=== PATIENT | male | born 1960 | race Caucasian/White ===

== ENCOUNTER 2017-01-24 03:58 | Inpatient (IN) | payer OTHER ==
--- NOTE | ~2017-01-24 | TOC ---
Unit #: [id number] #: [id number] Patient: JOB MERLOS [id number] [facility]. [place], [place] [address] [id number] MR#: [id number] NAME: JOB MERLOS ROOM: 559 Age: 56 Sex: M Admission Date: 01/24/2017 : 1960 Attending Physician: Luis Yuen M.D. Primary Care Physician: No Primary Care Physician TRANSFER OF CARE SUMMARY REASON FOR TRANSFER Three-vessel coronary artery disease, to have CABG early next week. 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 He endorses a history of hypertension and tobacco abuse. The patient presented to the emergency department. He had onset of midsternal chest pain radiating to his bilateral shoulders and bilateral arms, into his back and between his scapula. He did endorse some diaphoresis and shortness of breath with this episode. Ultimately, the patient underwent a cardiac catheterization which showed that his LV was dilated with an EF of 40% to 45%. His left main was normal. LAD showed proximal long segment 90% stenosis, distal normal. Left circumflex 100% after the first OM. Second, third, and posterior OM bypassable. RCA was dominant with 99% to 100% stenosis in its mid segment. PDA, PLV branches filled by retrograde collaterals. Dr. Yuen has discussed this case with Dr. Wang and likely the patient will need a CABG. Currently, patient is stable and awaiting transfer to [facility] for evaluation for a CABG early next week. DISCHARGE MEDICATIONS 1. Lovenox 100 mg subcutaneous b.i.d. 2. Zofran 4 mg IV q.4 hours p.r.n. nausea. 3. Atorvastatin 80 mg p.o. at bedtime. 4. Lopressor 25 mg p.o. b.i.d. 5. Hydrochlorothiazide 25 mg p.o. daily. 6. Lisinopril 20 mg p.o. daily. 7. Sliding scale insulin. 8. Aspirin 81 mg p.o. daily. 9. Percocet 10/325 mg one to two tabs p.o. daily p.r.n. PLAN Again, patient will be transferred to [facility] for CABG evaluation. Dictated by... Juliana Barnes A.P.R.N. for Luis Yuen M.D. Unit #: [id number] #: [id number] Patient: CRISTINATaliaJOB AM/ginger TD: 01/26/2017 14:09 JOB #: [id number] TRANSFER OF CARE SUMMARY Page 1 of 1 X Juliana Barnes APRN X TRANSFER OF CARE SUMMARY
--- NOTE | ~2017-01-24 | HP ---
Unit #: [id number] #: [id number] Patient: JOB MCCOY [id number] [facility]. [place], [place] [address] [id number] MR#: [id number] NAME: JOB MCCOY ROOM: 58401 Age: 56 Sex: M Admission Date: 01/24/2017 : 1960 Attending Physician: Luis Yuen M.D. 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 He says he has known he has had hypertension for years but has never been on any medication, active nicotine abuse, who came to the emergency room after he had the onset of midsternal chest pain radiating up to bilateral shoulders, bilateral arms and into the back between his scapula. He did have some diaphoresis, some slight shortness of breath. Denies nausea or vomiting. No dizziness, presyncope or syncope. Denied any radiation of the pain up into his neck, bilateral jaws. The patient stated that she has been having some type of this pain over the last year off and on but this is more severe. He also says he noted he had hypertension when he went a couple years ago to get his teeth pulled for tooth decay. He was told they wouldn't pull his tooth because his blood pressure was so high. He says he has never been to a medical doctor in many years and never followed through with evaluating his hypertension. In the emergency room, the patient's blood pressure was 200/114, heart rate 110, respirations 18. He is afebrile. The patient's initial cardiac enzymes - CK MB was 1.6, troponin 0.10. Later, CK MB 6.3, troponin 0.25. His EKG shows some anterolateral ischemia, normal sinus rhythm. No ST elevations. The patient's other initial labs - his potassium is 3.2, sodium 133, glucose is 170. The patient was started on a heparin drip per protocol and also nitroglycerin drip to titrate and keep systolic pressure between 140 and 160 systolically. Also, he was given some IV Lopressor, morphine and aspirin. The patient will be admitted for further evaluation and management. He was also given a dose of potassium. The patient denies any recent cough, fever or chills. PAST MEDICAL HISTORY 1. The patient has known he has had hypertension for years. He has never been on any blood pressure medication. 2. Keaton syndrome diagnosed at the age of 23. 3. Active nicotine abuse. 4. Reformed alcohol abuse and reformed marijuana use. PAST SURGICAL HISTORY None. HOME MEDICATIONS 1. He takes occasional aspirin. 2. Has used some family member's Naprosyn. ALLERGIES Unit #: [id number] #: [id number] Patient: JOB MCCOY No known drug allergies. SOCIAL HISTORY The patient lives in an apartment. 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 He smokes two packs of cigarettes a day. He used to drink heavily but said he quit that ten years ago. He does drink occasional beer on the weekend. Used to smoke marijuana but hasn't done that in about ten years. No other illicit drug abuse. FAMILY HISTORY His mother of complications after breast cancer. He is unaware of his father's health. His siblings are in generally well health. REVIEW OF SYSTEMS CONSTITUTIONAL: Denies fever or chills. No recent weight gain or weight loss. HEENT: Denies headache or dizziness. No visual or hearing changes. No lymphadenopathy or thyromegaly. No difficulty swallowing. CARDIOVASCULAR: Chest pain present. Denies palpitations, denies increased lower extremity edema. PULMONARY: Slight shortness of breath with the chest pain. Denies paroxysmal nocturnal dyspnea or orthopnea. GI: Denies nausea, vomiting, diarrhea or abdominal pain. NEUROLOGICAL: No focal weakness. PHYSICAL EXAMINATION GENERAL: On exam, Mr. Mccoy is a 56-year-old white male in no acute respiratory distress. He is awake, alert and oriented. VITAL SIGNS: Blood pressure current on nitroglycerin drip is 174/88, heart rate 94, respirations 18, temperature 97.8, and O2 sats 99% on 2 L. NECK: Trachea midline. No thyromegaly or lymphadenopathy. Normal carotid upstrokes. No jugular venous distention. HEART: S1, S2. Grade 1/4 systolic murmur over right sternal border. LUNGS: Very diminished. ABDOMEN: Distended, obese, nontender. EXTREMITIES: Pedal pulses are palpable. Trace of pedal edema. DIAGNOSTIC STUDIES LABORATORY: Glucose is 170, BUN 13, creatinine 0.9, eGFR is 95.1, sodium 133, potassium 3.2, chloride 103, CO2 22, calcium 9.1, total protein 8.0, AST 24, ALT 21, alkaline phos. 84. WBC is 15.7, hemoglobin is 16.4, hematocrit 48.5 and platelets 319. Initial cardiac enzymes - CK MB 1.6, troponin 0.10. CK MB 6.3, troponin is 0.25. IMAGING: Chest x-ray shows cardiomegaly, diffuse interstitial prominence, nonspecific. No dense consolidation. CARDIOVASCULAR: EKG shows sinus rhythm, ventricular rate 86 beats/minute, poor R wave progression. 1.[address] depression in anterolateral leads. IMPRESSION 1. Non-ST elevated myocardial infarction, acute coronary syndrome. 2. Unstable angina. 3. Uncontrolled hypertension. 4. Nicotine abuse. Unit #: [id number] #: [id number] Patient: JOB MCCOY 5. Reformed alcohol abuse. 6. Keaton syndrome. 7. Hyperglycemia. PLAN 1. The patient is on treatment for acute coronary syndrome, non-STEMI. The patient is on heparin drip per protocol so nitroglycerin drip to titrate and keep blood pressure systolic 140s to 150 mmHg. Also, patient was given aspirin 325 p.o. The patient has been started on beta juliana and ordered to get 80 mg of Lipitor stat. In addition, started on the beta juliana. Start lisinopril 20 mg p.o. q. h.s., hydrochlorothiazide 25 mg p.o. daily. Also, will initiate Norvasc 10 mg p.o. stat and will make final recommendations on blood pressure management before discharge. 2. Discussed with the patient the need to evaluate for ischemic heart disease by performing a cardiac catheterization. Discussed with the patient the risks and benefits including risk of bleeding, myocardial infarction, stroke and even . The patient verbalized his understanding and agrees to proceed. 3. Encouraged patient to completely quit smoking. Smoking cessation information provided to patient. 4. Will obtain a fasting lipid profile and TSH and evaluate. 5. Further recommendations after the heart catheterization results. 6. Will discuss with patient healthy lifestyle modification. 7. The patient's blood sugar is 170. Will start on Accu-Cheks q.6 hours with sliding scale low dose scale and will evaluate and do hemoglobin A1c to see if patient could likely be diabetic type 2. 8. Further recommendations pending Dr. Yuen. Dictated by Bethanie Arredondo A.P.R.N. for Miki Huerta/jhon TD: 01/24/2017 09:19 JOB #: [id number] HISTORY AND PHYSICAL Page 1 of 1 X Bethanie Arredondo APRN X HISTORY AND PHYSICAL
--- NOTE | ~2017-01-24 | CR72 ---
[facility] A Service of [facility] RADIOLOGY TEXT RESULTS PATIENT: JOB MERLOS LOCATION: [facility] [place] CICCU10-14 : 60 UNIT #: [id number] AGE: [address]: Luis Yuen MD SEX: M ORDER DR: [id number] [facility] [address] [place], [place] [address] [id number] MR#: [id number] #: [id number] NAME: JOB MERLOS : 1960 SEX: M STUDY DATE/TIME: 01/24/2017 4:22 UNIT: NISH ROOM: STUDY DESCRIPTION: CR Chest Single View Portable Attending Physician: Rusty Horvath M.D. Ordering Physician: Rusty Horvath M.D. Primary Care Physician: Primary Care Physician No MEDICAL IMAGING REPORT This report is preliminary unless electronic signature is present EXAM Portable chest INDICATION Left-sided chest pain for the past year. PROCEDURE Frontal view chest. COMPARISON None. FINDINGS Moderately large cardiomegaly. No dense consolidation, pleural fluid or pneumothorax. Diffuse interstitial prominence. IMPRESSION 1. Cardiomegaly. 2. Diffuse interstitial prominence. It is nonspecific but could represent chronic parenchymal change. There are no priors for comparison. 3. No dense consolidation. Dictated by... Chapincito Ramos M.D. THIS IS AN ELECTRONICALLY VERIFIED REPORT Chapincito Ramos M.D. at 01/24/2017 10:26 PM EED/ljd TD: 01/24/2017 04:52 [facility] A Service of [facility] RADIOLOGY TEXT RESULTS PATIENT: JOB MERLOS LOCATION: [facility] CICCU3 : 60 UNIT #: [id number] AGE: [address]: Luis Yuen MD SEX: M ORDER DR: JOB #: [id number] MEDICAL IMAGING REPORT Page 1 of 1 COPY
--- NOTE | ~2017-01-24 | EKG ---
PATIENT: JOB MERLOS UNIT #: [id number] Ventricular Rate: 115 BPM Atrial Rate: 115 BPM P-R Interval: 138 ms QRS Duration: 86 ms Q-T Interval: 330 ms QTC Calculation(Bezet): 456 ms P [place]: 81 degrees Calculated R [place]: 84 degrees Calculated T [place]: 72 degrees Diagnosis Line: Sinus tachycardia Diagnosis Line: Marked ST abnormality, possible inferior Diagnosis Line: subendocardial injury Diagnosis Line: Marked ST abnormality, possible anterolateral Diagnosis Line: subendocardial injury Diagnosis Line: Abnormal ECG Diagnosis Line: No previous ECGs available Diagnosis Line: Confirmed by ALBERTINA SANTOS MD ([id number]) on 01/24/2017 Diagnosis Line: 8:33:16 PM INTERPRETING MD: DANIELLE HOWELL
--- NOTE | ~2017-01-24 | EKG ---
PATIENT: JOB MERLOS UNIT #: [id number] Ventricular Rate: 58 BPM Atrial Rate: 58 BPM P-R Interval: 138 ms QRS Duration: 94 ms Q-T Interval: 436 ms QTC Calculation(Bezet): 428 ms P [place]: 39 degrees Calculated R [place]: 51 degrees Calculated T [place]: 106 degrees Diagnosis Line: Sinus bradycardia Diagnosis Line: ST and T wave abnormality, consider anterolateral Diagnosis Line: ischemia Diagnosis Line: Abnormal ECG Diagnosis Line: When compared with ECG of 24-JAN-2017 05:04, Diagnosis Line: Vent. rate has decreased BY 28 BPM Diagnosis Line: ST no longer depressed in Anterior leads Diagnosis Line: T wave inversion now evident in Anterolateral Diagnosis Line: leads Diagnosis Line: Confirmed by ALBERTINA SANTOS MD ([id number]) on 01/30/2017 Diagnosis Line: 2:30:54 PM INTERPRETING MD: DANIELLE HOWELL
--- NOTE | ~2017-01-24 | EKG ---
PATIENT: JOB MERLOS UNIT #: [id number] Ventricular Rate: 86 BPM Atrial Rate: 86 BPM P-R Interval: 116 ms QRS Duration: 86 ms Q-T Interval: 368 ms QTC Calculation(Bezet): 440 ms P [place]: 39 degrees Calculated R [place]: 64 degrees Calculated T [place]: 104 degrees Diagnosis Line: Normal sinus rhythm Diagnosis Line: Marked ST abnormality, possible anterolateral Diagnosis Line: subendocardial injury Diagnosis Line: Abnormal ECG Diagnosis Line: When compared with ECG of 24-JAN-2017 05:02, Diagnosis Line: (unconfirmed) Diagnosis Line: No significant change was found Diagnosis Line: Confirmed by ALBERTINA SANTOS MD ([id number]) on 01/24/2017 Diagnosis Line: 8:33:24 PM INTERPRETING MD: DANIELLE HOWELL
[2017-01-24 04:23] LABS: BASOPHIL# 0.1 X10e3 (0-0.3); BASOPHIL% 0.9 % (0-2.5); DIFF IND YES; EOSINOPHIL# 0.3 X10e3 (0-0.7); EOSINOPHIL% 1.9 % (0.0-7.0); HEMATOCRIT 48.5 % (38.0-50.0); HEMOGLOBIN 16.4 gm/dL (13.0-16.0); LYMPHOCYTE# 3.1 X10e3 (1.0-3.5); LYMPHOCYTE% 19.9 % (17.0-45.0); MEAN CELL VOLUME 85.7 FL (83-96); MEAN CORPUSCULAR HEMOGLOBIN 29.1 PG (28-34); MEAN CORPUSCULAR HGB CONC 33.9 g/dL (30-36); MEAN PLATELET VOLUME 7.4 FL (6.5-11.5); MONOCYTE# 0.8 X10e3 (0-1.0); MONOCYTE% 5.2 % (3.0-12.0); NEUTROPHIL# 11.3 X10e3 (1.5-7.1); NEUTROPHIL% 72.1 % (40-75); PLATELET COUNT 319 X10e3 (140-420); RED BLOOD COUNT 5.65 X10e (3.90-5.60); RED CELL DISTRIBUTION WIDTH 14.7 % (11.0-15.5); WHITE BLOOD COUNT 15.7 X10e3 (4.0-10.5)
[2017-01-24 04:31] LABS: POC - CKMB 1.6 ng/mL (0.0-7.9); POC - TROPONIN 0.1 ng/mL (<=0.05)
[2017-01-24 04:40] LABS: PLATELET ESTIMATE NORMAL (NORMAL); RBC NORMAL YES
[2017-01-24 04:43] LABS: ALBUMIN SERUM 4.6 g/dL (3.5-5.0); BILIRUBIN, DIRECT 0.1 mg/dL (0.0-0.2); BILIRUBIN,INDIRECT 0.5 mg/dL (0.0-0.9); BILIRUBIN,TOTAL 0.6 mg/dL (0.2-2.0); BUN/CREATININE RATIO 14.44; CALCIUM SERUM 9.1 mg/dL (8.4-10.2); CREATININE SERUM 0.9 mg/dL (0.6-1.4); GLOM FILT RATE Estimated 95.1 mL/min (>60); POTASSIUM 3.2 mmol/L (3.5-5.1)
[2017-01-24 06:01] LABS: POC - CKMB 6.3 ng/mL (0.0-7.9); POC - TROPONIN 0.25 ng/mL (<=0.05)
[2017-01-24 09:44] LABS: CHOLESTEROL 203 mg/dL (0-200); HDL CHOLESTEROL 37 mg/dL (29-75); LDL/HDL RATIO 4 RATIO (0-4); TRIGLYCERIDES 157 mg/dL (10-160)
[2017-01-24 09:46] LABS: LDL CHOLESTEROL 135 mg/dL (-130)
[2017-01-24 12:14] LABS: PARTIAL THROMBOPLASTIN TIME 26.2 SECONDS (23.5-31.3); PROTHROMBIN TIME (PATIENT) 10.7 SECONDS (10.0-11.7)
[2017-01-24 12:47] LABS: %MB 19.4 % (0.0-4.0); MB 29.9 ng/ml
[2017-01-24 18:55] LABS: %MB 18.9 % (0.0-4.0); MB 24.6 ng/ml
[2017-01-25 05:25] LABS: HEMATOCRIT 42.3 % (38.0-50.0); MEAN CELL VOLUME 86.1 FL (83-96); MEAN CORPUSCULAR HEMOGLOBIN 28.8 PG (28-34); MEAN CORPUSCULAR HGB CONC 33.4 g/dL (30-36); MEAN PLATELET VOLUME 7.8 FL (6.5-11.5); RED BLOOD COUNT 4.91 X10e (3.90-5.60); RED CELL DISTRIBUTION WIDTH 14.3 % (11.0-15.5); WHITE BLOOD COUNT 11.6 X10e3 (4.0-10.5)
[2017-01-25 05:30] LABS: HEMOGLOBIN 14.1 gm/dL (13.0-16.0)
[2017-01-25 06:13] LABS: BUN/CREATININE RATIO 14.44; CALCIUM SERUM 9.1 mg/dL (8.4-10.2); CREATININE SERUM 0.9 mg/dL (0.6-1.4); GLOM FILT RATE Estimated 95.1 mL/min (>60); POTASSIUM 3.6 mmol/L (3.5-5.1)
== END 2017-01-26 22:45 | DRG 281 ==
LOC: CED 03:58 → CEDOF 05:50 → CICCU3 06:00 → CED 06:00 → CEDOF 06:00 → CICCU3 10:13 → CEDOF 10:13 → C5B 01-25 23:07
PROVIDERS: Emergency Medicine; Internal Medicine Cardiovascular Disease
DX: I21.4 Non-ST elevation (NSTEMI) myocardial infarction (principal); M02.30 Reiter's disease, unspecified site; I10 Essential (primary) hypertension; F17.210 Nicotine dependence, cigarettes, uncomplicated; Z71.6 Tobacco abuse counseling; F10.21 Alcohol dependence, in remission; Z80.3 Family history of malignant neoplasm of breast; R73.9 Hyperglycemia, unspecified
CPT/HCPCS: 71010; 80048; 80061; 80076; 82550; 82553; 82947; 83036; 84443; 84484; 85025; 85027; 85610; 85730; 93005; 96374; 96375; 99291; C1769; C1887; C1894; J0360; J1644; J1650; J2250; J2270; J2550; J3010; J3490